=== PATIENT | female | born 1950 | race Caucasian/White ===

== ENCOUNTER → 2017-07-01 | Outpatient (CLI) | payer MEDICARE, OTHER | LOC: MC.RAD 14:30 | DX: Z12.31 Encounter for screening mammogram for malignant neoplasm of breast (principal); R92.8 Other abnormal and inconclusive findings on diagnostic imaging of breast ==

== ENCOUNTER → 2017-07-07 | Outpatient (CLI) | payer MEDICARE, OTHER | LOC: MC.RAD 14:00 | DX: R92.8 Other abnormal and inconclusive findings on diagnostic imaging of breast (principal) ==

== ENCOUNTER → 2018-01-05 | Outpatient (CLI) | payer MEDICARE, OTHER | LOC: MC.RAD 12:50 | DX: R92.8 Other abnormal and inconclusive findings on diagnostic imaging of breast (principal) ==

== ENCOUNTER 2019-02-09 07:15 | Day surgery (SDC) | payer MEDICARE, OTHER ==
[~2019-02-09] VITALS: Ht 160 cm; Wt 62.5 kg
[2019-02-09 08:22] VITALS: BP 132/70; PULSE 97; TEMP 97
[2019-02-09] MEDS ORDERED: ZOCOR 20MG20 MG PO (08:27)
[2019-02-09] MEDS ORDERED: LOSARTAN-HCTZ 100-25 PO (08:30)
[2019-02-09] MEDS ORDERED: PRILOTC PO (08:31)
[2019-02-09] MEDS ORDERED: PROBIOTIC FORMU1 CAP PO (08:32)
[2019-02-09 09:15] VITALS: BP 109/62; PULSE 82; TEMP 98.4
[2019-02-09 09:30] VITALS: BP 116/68; PULSE 82
[2019-02-09 09:45] VITALS: BP 131/64; PULSE 85
--- NOTE | 2019-02-09 10:12 | NUR ---
PT RETURNED FROM ENDO PROCEDURE PER CART. PT ALERT AND ORIENTED, SLEEPY. AMBULATED X2 ASSIST TO ENDO BAY 3. TOLERATED WELL, C/O SLIGHT ABD DISCOMFORT, DENIED PAIN. WARM BATH BLANKET GIVEN FOR ABD DISCOMFORT. COFFEE AND CRACKERS REQUESTED. DAUGHTER AT BEDSIDE. VSS. LUNGS CLEAR, BOWEL SOUNDS PRESENT. WILL CONT TO MONITOR.
--- NOTE | 2019-02-09 10:17 | NUR ---
PT MORE AWAKE NOW, ALERT AND ORIENTATED. PT STATES,' ABDOMEN FEELING BETTER'. DENIES PAIN OR NAUSEA. IV DC'D TO LEFT FOREARM. NO PAIN, REDNESS, SWELLING NOTED. DISCHARGE INSTRUCTIONS GIVEN, PT VOICES UNDERSTANDING. PT AMBULATED OUT TO FAMILY VEHICLE WITHOUT DIFFICULTY.
== END 2019-02-09 10:25 ==
LOC: SDCO 07:15
DX: D12.4 Benign neoplasm of descending colon (principal); K57.30 Diverticulosis of large intestine without perforation or abscess without bleeding; K64.0 First degree hemorrhoids; K64.4 Residual hemorrhoidal skin tags; K21.9 Gastro-esophageal reflux disease without esophagitis; I10 Essential (primary) hypertension; E78.00 Pure hypercholesterolemia, unspecified; M85.80 Other specified disorders of bone density and structure, unspecified site; M17.0 Bilateral primary osteoarthritis of knee
CPT/HCPCS: J2704

== ENCOUNTER → 2020-08-18 | Outpatient (CLI) | payer MEDICARE, OTHER ==
[~2020-08-18] MED LIST: LOSARTAN-HCTZ 100-25 PO; PRILOTC PO; PROBIOTIC FORMU1 CAP PO; ZOCOR 20MG20 MG PO
== END ==
LOC: MC.RAD 12:57
DX: Z12.31 Encounter for screening mammogram for malignant neoplasm of breast (principal)

== ENCOUNTER → 2021-02-02 | Outpatient (CLI) | payer MEDICARE, OTHER | LOC: COL.RAD 11:49 | DX: D23.39 Other benign neoplasm of skin of other parts of face (principal) ==

== ENCOUNTER → 2021-09-12 | Outpatient (CLI) | payer MEDICARE, OTHER | LOC: MC.RAD 13:55 | DX: Z12.31 Encounter for screening mammogram for malignant neoplasm of breast (principal) ==

== ENCOUNTER → 2022-10-02 | Outpatient (CLI) | payer MEDICARE, OTHER | LOC: MC.RAD 10:54 | DX: Z00.00 Encounter for general adult medical examination without abnormal findings (principal); Z12.31 Encounter for screening mammogram for malignant neoplasm of breast ==

== ENCOUNTER → 2023-03-18 | Outpatient (CLI) | payer MEDICARE, OTHER | LOC: CANSCHCLI → COL.CARD 07:50 → COL.PUL 08:00 | DX: R06.02 Shortness of breath (principal) ==

== ENCOUNTER → 2023-05-07 | Outpatient (CLI) | payer MEDICARE, OTHER | LOC: COL.CARD 13:24 | DX: R06.02 Shortness of breath (principal) | CPT/HCPCS: J7674 ==

== ENCOUNTER → 2023-10-14 | Outpatient (CLI) | payer MEDICARE, OTHER | LOC: MC.RAD 14:23 | DX: Z12.31 Encounter for screening mammogram for malignant neoplasm of breast (principal) ==